=== PATIENT | male | born 1980 ===

== ENCOUNTER → 2017-05-30 | Outpatient (REF) ==
--- NOTE | 2017-05-30 12:42 | Diagnostic Imaging Report ---
INDICATION: Positive TB skin test. TIME OF EXAM: 12:47 p.m. No prior studies are available for comparison. FINDINGS: The heart size is normal. The lungs are clear. No infiltrates are seen. The pulmonary vascularity is normal. No effusion or pneumothorax is identified. IMPRESSION: No acute cardiopulmonary process is detected. Dictated by: Dictated on workstation # [id number]
== END | disposition home or self-care (01) ==
LOC: OCC 12:09
PROVIDERS: ATTEND Nurse Practitioner Family
CPT/HCPCS: 71046